=== PATIENT | female | born 1980 | race American Indian/Alaskan Native ===

== ENCOUNTER 2021-02-13 10:43 | Day surgery (SDC) | payer MEDICARE ==
[2021-02-13] MEDS ORDERED: SODIUM CHLORIDE 0.9% 1000 ML 1,000 ML ONE (11:04)
[2021-02-13 12:05] LABS: Calcium 9.3 mg/dL (8.4-10.2)
--- NOTE | 2021-02-13 12:11 | Anesthesia Day of Surgery ---
Anesthesia Day of Surgery - Day of Surgery Patient Examined: Yes Patient H&P Reviewed: Yes Patient is NPO: Yes Beta Blockers: Yes
[2021-02-13 12:13] LABS: Hematocrit 34.4 % (30.3-42.9); Hemoglobin 10.6 gm/dl (10.1-14.3)
[2021-02-13] MEDS ORDERED: ONDANSETRON 4 MG/2 ML INJ IV PRN (12:13)
[2021-02-13] MEDS ORDERED: HYDROmorphone 1 MG/1 ML INJ IV PRN ×2 (12:13)
[2021-02-13] MEDS ORDERED: fentaNYL 100 MCG/2 ML INJ IV ONE (12:13)
--- NOTE | 2021-02-13 12:13 | Anesthesia Consultation ---
Anesthesia Consult and Med Hx Date of service: 02/13/21 - Airway Anesthetic Teeth Evaluation: Good ROM Head & Neck: Adequate Mental/Hyoid Distance: Adequate Mallampati Class: Class II Intubation Access Assessment: Good - Pre-Operative Health Status ASA Pre-Surgery Classification: ASA3 Nerve Block: IS (GA if needed) - Pulmonary Hx Smoking: Yes - Cardiovascular System Hx Hypertension: Yes - Central Nervous System Hx Psychiatric Problems: Yes - Gastrointestinal Hx Gastroesophageal Reflux Disease: Yes - Endocrine Hx End Stage Renal Disease: Yes Hx Non-Insulin Dependent Diabetes: Yes - Hematic Hx Anemia: Yes (IRON TRANSFUSIONS) Hx Sickle Cell Disease: Yes (SICKLE CELL TRAIT) - Other Systems Hx Alcohol Use: No Hx Substance Use: No Hx Cancer: No Hx Obesity: Yes - Additional Comments Anesthesia Medical History Comments: ? reaction to blood tx
[2021-02-13] MEDS ORDERED: BUPIVACAINE/PF (0.5%) 5 MG/1 ML 30 ML VIAL INFILTRATI ONE (12:14)
[2021-02-13] MEDS ORDERED: SODIUM CHLORIDE 0.9% 1000 ML 1,000 ML IV SCH (12:15)
[2021-02-13] MEDS ORDERED: MIDAZOLAM 2 MG/2 ML INJ IV NR (13:00)
--- NOTE | 2021-02-13 13:09 | History and Physical Report ---
History of Present Illness Date of examination: 02/13/21 History of present illness: HPI: 40 year old male with ESRD on HD presents in need of upper extremity access. The patient was initially schedule to undergo revision of left arm av graft but was noted to be thrombosed in pre-op. Patient will now need to undergo venogram to determine access options. ROS: as per HPI PE: NAD, A&O x 3 RRR non-labored respirations Plan: Plan for bilateral upper extremity venogram Medications and Allergies Allergies Allergy/AdvReac Type Severity Reaction Status Date / Time No Known Allergies Allergy Verified 02/05/21 16:09 Home Medications Medication Instructions Recorded Confirmed Last Taken Type Escitalopram [Lexapro] 10 mg PO DAILY 02/05/21 02/13/21 02/12/21 09:00 History Losartan [Cozaar] 100 mg PO QDAY 02/05/21 02/13/21 02/13/21 06:00 History Metoprolol [Lopressor] 25 mg PO BID 02/05/21 02/13/21 02/13/21 06:00 History NIFEdipine XL [Procardia Xl] 60 mg PO QDAY 02/05/21 02/13/21 02/13/21 06:00 History Omeprazole Magnesium [PriLOSEC Otc] 20 mg PO BID 02/05/21 02/13/21 02/12/21 15:00 History Sevelamer Carbonate [Renvela] 800 mg PO TIDWM 02/05/21 02/13/21 02/12/21 17:00 History Active Meds: Active Medications Hydromorphone HCl (Hydromorphone 1 Mg/1 Ml Inj) 0.25 mg IV Q10MIN PRN PRN Reason: Pain, Moderate (4-6) Hydromorphone HCl (Hydromorphone 1 Mg/1 Ml Inj) 0.5 mg IV Q10MIN PRN PRN Reason: Pain , Severe (7-10) Sodium Chloride (Nacl 0.9% 1000 Ml) 1,000 mls @ 42 mls/hr IV DIRECT MOI Midazolam HCl (Midazolam 2 Mg/2 Ml Inj) 2 mg IV PREOP NR Stop: 02/13/21 23:59 Ondansetron HCl (Ondansetron 4 Mg/2 Ml Inj) 4 mg IV ONCE PRN PRN Reason: Nausea And Vomiting Results - Labs CBC & Chem 7: 02/13/21 11:30 02/13/21 11:30 Labs: Abnormal lab results 02/13/21 02/13/21 Range/Units 11:30 11:31 Chloride 92.5 L (98-107) mmol/L BUN 30 H (7-17) mg/dL Creatinine 6.7 H (0.6-1.2) mg/dL Glucose 114 H (65-100) mg/dL POC Glucose 108 H (70-105) mg/dL
[2021-02-13] MEDS ORDERED: HEPARIN/NS 5000 UNIT/500ML 1,000 ML IR ONE (13:19)
[2021-02-13] MEDS ORDERED: LIDOCAINE (2%) 20 MG/1 ML VIAL 20 ML MDV INFILTRATI ONE (13:20)
[2021-02-13 13:52] VITALS: BP 131/75
[2021-02-13] MEDS ORDERED: HEPARIN/NS 5000 UNITS/500 ML BAG (CATH LAB ONLY) IR ONE (14:15)
[2021-02-13] MEDS ORDERED: HEPARIN 10,000 UNITS/10 ML VIAL ONE (14:54)
--- NOTE | 2021-02-13 15:02 | Post Operative Note ---
Date of procedure: 02/13/21 Pre-op diagnosis: ESRD Post-op diagnosis: same Findings: Left upper extremity venogram demonstrated multiple collaterals in the distal forearm with reconstitution of the cephalic vein in the mid forearm that was small and dimunitive in size, the cephalic vein occludes in the distal upper arm with reconsitution of the paired brachial veins which were patent, axillary, subclavian anf left innominant vein patent. Right upper extremity venogram demonstrated multiple collaterals in the forearm with no named vessels in the forearm with reconsitution of the paired brachial veins which were patent, axillary, subclavian anf left innominant vein patent. Procedure: Bilateral upper extremity venogram Anesthesia: local Surgeon: DOTTIE ADDISON Estimated blood loss: none Pathology: none Condition: stable Disposition: PACU
--- NOTE | 2021-02-13 15:04 | Short Stay Summary ---
Short Stay Documentation Date of service: 02/13/21 - History H&P: obtained from office Past Medical History: ESRD, hypertension - Allergies and Medications Current Medications: Allergies No Known Allergies Allergy (Verified 02/05/21 16:09) Home Medications Medication Instructions Recorded Confirmed Last Taken Type Escitalopram [Lexapro] 10 mg PO DAILY 02/05/21 02/13/21 02/12/21 09:00 History Losartan [Cozaar] 100 mg PO QDAY 02/05/21 02/13/21 02/13/21 06:00 History Metoprolol [Lopressor] 25 mg PO BID 02/05/21 02/13/21 02/13/21 06:00 History NIFEdipine XL [Procardia Xl] 60 mg PO QDAY 02/05/21 02/13/21 02/13/21 06:00 History Omeprazole Magnesium [PriLOSEC Otc] 20 mg PO BID 02/05/21 02/13/21 02/12/21 15:00 History Sevelamer Carbonate [Renvela] 800 mg PO TIDWM 02/05/21 02/13/21 02/12/21 17:00 History Active Medications Hydromorphone HCl (Hydromorphone 1 Mg/1 Ml Inj) 0.25 mg IV Q10MIN PRN PRN Reason: Pain, Moderate (4-6) Hydromorphone HCl (Hydromorphone 1 Mg/1 Ml Inj) 0.5 mg IV Q10MIN PRN PRN Reason: Pain , Severe (7-10) Sodium Chloride (Nacl 0.9% 1000 Ml) 1,000 mls @ 42 mls/hr IV DIRECT MOI Last Admin: 02/13/21 12:30 Dose: 42 mls/hr Documented by: Midazolam HCl (Midazolam 2 Mg/2 Ml Inj) 2 mg IV PREOP NR Stop: 02/13/21 23:59 Ondansetron HCl (Ondansetron 4 Mg/2 Ml Inj) 4 mg IV ONCE PRN PRN Reason: Nausea And Vomiting - Physical exam General appearance: no acute distress Lungs: Normal air movement Heart: Regular rate Extremities: no ischemia - Hospital course Hospital course: the patient was taken to the geophysical laboratory supervisor and had a bilateral upper extremity venogram performed. please refer to the operative note concerning details of the procedure. the patient tolerated the procedure well and was discharged home in stable condition. - Disposition Condition at discharge: Stable Disposition: 01 HOME / SELF CARE / HOMELESS Short Stay Discharge Plan Follow up with: PRIMARY CARE, [Primary Care Provider] - 7 Days
--- NOTE | 2021-02-13 15:35 | Post Anesthesia Evaluation ---
- Post Anesthesia Evaluation Patient Participated: Yes Airway Patent: Yes Stable Respiratory Function: Yes Nausea/Vomiting: No Temp > 96.8F: Yes Pain Manageable: Yes Adequeate Hydration: Yes Anesthesia Complications: No Block Receding Appropriately: Yes Patient on Ventilator: No Other Comments: Surgery was cancelled. Arm in sling
--- NOTE | 2021-02-13 15:40 | Operative Report ---
DATE OF SURGERY: 02/13/2021 ATTENDING PHYSICIAN: Douglas Ceron MD STAFF SURGEON: Douglas Ceron MD PREOPERATIVE DIAGNOSIS: End-stage renal disease. POSTOPERATIVE DIAGNOSIS: End-stage renal disease. PROCEDURE PERFORMED: Bilateral upper extremity venogram. COMPLICATIONS: None. ESTIMATED BLOOD LOSS: Less than 10 mL. ANESTHESIA: Local. ANGIOGRAPHIC FINDINGS: Left upper extremity venogram demonstrated multiple collaterals in the distal forearm with reconstitution of the cephalic vein in the mid forearm that was small and diminutive in size. The cephalic vein occluded in the distal upper arm with reconstitution of the paired brachial veins, which were patent. The axillary, subclavian and left innominate vein were all patent. Right upper extremity venogram demonstrated multiple collaterals in the forearm with no named vessels in the forearm with reconstitution of the paired brachial veins, which were patent. The right axillary, subclavian and right innominate veins were all patent. INDICATIONS FOR PROCEDURE: This is a 40-year-old female with end-stage renal disease, on hemodialysis, who initially presented to our office with worsening swelling after cannulation of her left upper extremity access. 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 The patient was scheduled to undergo revision of this access today, however, on preoperative assessment, it was noted that the patient's access had thrombosed several days ago. Given the aneurysmal degeneration of the access, it was felt not to be safe to undergo a percutaneous thrombectomy and the patient would require a new access. Therefore, the patient then was scheduled to undergo a bilateral upper extremity venogram to determine what options the patient may have. DESCRIPTION OF PROCEDURE: After the appropriate consent was obtained, the patient was brought to the oil field laborer and placed on the table in supine position with both arms extended. The IVs had been placed prior to intervention. We then proceeded to inject contrast through each arm and x-rays taken, which demonstrated the findings noted above. The patient tolerated the procedure well. Both accesses were flushed with heparinized saline and the patient was then taken to recovery in stable condition. TID: [id number] RECEIPT: [id number] BRUCE/DEVIN
== END 2021-02-13 10:44 | disposition home or self-care (01) ==
LOC: OR 10:43
PROVIDERS: ATTEND Surgery Vascular Surgery
DX: I12.0 Hypertensive chronic kidney disease with stage 5 chronic kidney disease or end stage renal disease (principal); N18.6 End stage renal disease; K21.9 Gastro-esophageal reflux disease without esophagitis; E66.9 Obesity, unspecified; F32.9 Major depressive disorder, single episode, unspecified; Z99.2 Dependence on renal dialysis; Z87.891 Personal history of nicotine dependence; Z79.899 Other long term (current) drug therapy; Z98.890 Other specified postprocedural states
CPT/HCPCS: 36415; 64415; 75822; 80048; 82962; 85014; 85018; 86850; 86900; 86901; J1644; J2250; J3010; J3490; J7030; 64450; Q0162; Q9967

== ENCOUNTER 2021-03-13 12:13 | Day surgery (SDC) | payer MEDICARE ==
[2021-03-13] MEDS ORDERED: SODIUM CHLORIDE 0.9% 1000 ML 1,000 ML ONE (13:57)
--- NOTE | 2021-03-13 14:09 | Anesthesia Day of Surgery ---
Anesthesia Day of Surgery - Day of Surgery Patient Examined: Yes Patient H&P Reviewed: Yes Patient is NPO: Yes
[2021-03-13] MEDS ORDERED: ONDANSETRON 4 MG/2 ML INJ IV PRN (14:12)
[2021-03-13] MEDS ORDERED: HYDROmorphone 1 MG/1 ML INJ IV PRN ×2 (14:12)
[2021-03-13] MEDS ORDERED: fentaNYL 100 MCG/2 ML INJ IV ONE (14:12)
--- NOTE | 2021-03-13 14:12 | Anesthesia Consultation ---
Anesthesia Consult and Med Hx Date of service: 03/13/21 - Airway Anesthetic Teeth Evaluation: Poor (Missing) ROM Head & Neck: Adequate Mental/Hyoid Distance: Adequate Mallampati Class: Class II Intubation Access Assessment: Good - Pre-Operative Health Status ASA Pre-Surgery Classification: ASA3 Nerve Block: IS (Block; GA if needed) - Pulmonary Hx Smoking: Yes (Former [id number]) Hx Sleep Apnea: No - Cardiovascular System Hx Hypertension: Yes - Central Nervous System Hx Psychiatric Problems: Yes (Depression) - Gastrointestinal Hx Gastroesophageal Reflux Disease: Yes - Endocrine Hx Renal Disease: Yes (Goodpasture syndrome) Hx End Stage Renal Disease: Yes (Last HD yesterday) Hx Non-Insulin Dependent Diabetes: Yes ("PRE") - Hematic Hx Anemia: Yes (IRON INFUSION) Hx Sickle Cell Disease: Yes (SICKLE CELL TRAIT) - Other Systems Hx Alcohol Use: No Hx Substance Use: No Hx Cancer: No Hx Obesity: Yes - Additional Comments Anesthesia Medical History Comments: Was here [id number] postponed
[2021-03-13 14:15] LABS: Hematocrit 29.8 % (30.3-42.9); Hemoglobin 9.3 gm/dl (10.1-14.3); Mean Corpuscular HGB Conc 31 % (30-34); Mean Corpuscular Volume 84 fl (79-97); Platelet Count 233 K/mm3 (140-440); Red Blood Count 3.53 M/mm3 (3.65-5.03); Red Cell Distribution Width 17.9 % (13.2-15.2)
[2021-03-13] MEDS ORDERED: SODIUM CHLORIDE 0.9% 1000 ML 1,000 ML IV SCH (14:15)
[2021-03-13] MEDS ORDERED: MIDAZOLAM 5 MG/5 ML INJ MDV IV ONE (14:35)
[2021-03-13] MEDS ORDERED: BUPIVACAINE/PF (0.5%) 5 MG/1 ML 30 ML VIAL INFILTRATI ONE (14:37)
[2021-03-13 14:55] LABS: Calcium 9.4 mg/dL (8.4-10.2)
[2021-03-13] MEDS ORDERED: ceFAZolin/STERILE WATER 2 GM/20 ML SYRINGE IV NR (15:00)
[2021-03-13] MEDS ORDERED: MIDAZOLAM 2 MG/2 ML INJ IV NR (15:00)
[2021-03-13] MEDS: MIDAZOLAM 5 MG/5 ML INJ MDV IV SCH ×2 (15:06→15:08)
[2021-03-13] MEDS ORDERED: propofoL 200 MG/20 ML VIAL IV ONE ×2 (15:14→16:16)
[2021-03-13] MEDS ORDERED: LIDOCAINE MPF (2%) 20 MG/1 ML VIAL 5 ML ONE (15:14)
[2021-03-13] MEDS ORDERED: HYDROmorphone 1 MG/1 ML INJ ONE (15:14)
[2021-03-13] MEDS ORDERED: SODIUM BICARB 8.4% 50 MEQ/50 ML VIAL IV ONE (16:02)
[2021-03-13] MEDS ORDERED: LIDOCAINE 1%/EPINEPHRINE 1:100,000 VIAL (20 ML) INFILTRATI ONE (16:02)
[2021-03-13] MEDS ORDERED: HEPARIN 10,000 UNITS/10 ML VIAL ONE (16:02)
[2021-03-13] MEDS ORDERED: SODIUM CHLORIDE 0.9% 500 ML 500 ML ONE (16:02)
[2021-03-13] MEDS ORDERED: BUPIVACAINE/PF (0.25%) 2.5 MG/ML 30 ML VIAL INFILTRATI ONE (16:02)
[2021-03-13] MEDS ORDERED: NITROGLYCERIN SYRINGE 0 ML ONE (16:03)
[2021-03-13] MEDS ORDERED: KETAMINE/STERILE WATER 50 MG/ML SYRINGE ONE (16:21)
[2021-03-13] MEDS ORDERED: HEPARIN 10,000 UNITS/10 ML VIAL IV ONE (16:57)
[2021-03-13] MEDS ORDERED: SODIUM CHLORIDE 0.9% 500 ML IVPB IRRIGATION ONE (16:59)
[2021-03-13] MEDS ORDERED: SODIUM CHLORIDE 0.9% IRR 1,500 ML BOTTLE IR ONE (16:59)
[2021-03-13] MEDS ORDERED: THROMBIN (RECOMBINANT) 5,000 UNIT VIAL TP ONE ×2 (17:31→17:36)
--- NOTE | 2021-03-13 18:30 | Post Operative Note ---
Date of procedure: 03/13/21 Pre-op diagnosis: ESRD Post-op diagnosis: same Procedure: Left Arm Axillary Loop AV Graft Insertion Anesthesia: GETA Surgeon: DOTTIE ADDISON Estimated blood loss: other (25 ml) Pathology: none Condition: stable Disposition: PACU
[2021-03-13] MEDS ORDERED: oxyCODONE /ACETAMINOPHEN 5-325MG TAB PO PRN (18:32)
--- NOTE | 2021-03-13 18:32 | Short Stay Summary ---
Short Stay Documentation Date of service: 03/13/21 - History H&P: dictated Past Medical History: ESRD, hypertension - Allergies and Medications Current Medications: Allergies No Known Allergies Allergy (Verified 02/05/21 16:09) Home Medications Medication Instructions Recorded Confirmed Last Taken Type Escitalopram [Lexapro] 10 mg PO DAILY 02/05/21 03/04/21 03/12/21 10:00 History Losartan [Cozaar] 100 mg PO QDAY 02/05/21 03/04/21 03/12/21 10:00 History Metoprolol [Lopressor] 25 mg PO BID 02/05/21 03/04/21 03/12/21 10:00 History NIFEdipine XL [Procardia Xl] 60 mg PO QDAY 02/05/21 03/04/21 03/12/21 10:00 History Omeprazole Magnesium [PriLOSEC Otc] 20 mg PO BID 02/05/21 03/04/21 03/12/21 10:00 History Sevelamer Carbonate [Renvela] 800 mg PO TIDWM 02/05/21 03/04/21 03/12/21 10:00 History amLODIPine 10 mg PO PRN PRN MDD HYPERTENSION 03/13/21 03/13/21 03/13/21 08:00 History Active Medications Cefazolin Sodium (Cefazolin/Sterile Water 2 Gm/20 Ml Syringe) 2 gm IV PREOP NR Stop: 03/13/21 23:59 Hydromorphone HCl (Hydromorphone 1 Mg/1 Ml Inj) 0.25 mg IV Q10MIN PRN PRN Reason: Pain, Moderate (4-6) Hydromorphone HCl (Hydromorphone 1 Mg/1 Ml Inj) 0.5 mg IV Q10MIN PRN PRN Reason: Pain , Severe (7-10) Sodium Chloride (Nacl 0.9% 1000 Ml) 1,000 mls @ 42 mls/hr IV DIRECT MOI Last Admin: 03/13/21 13:57 Dose: 42 mls/hr Documented by: Ondansetron HCl (Ondansetron 4 Mg/2 Ml Inj) 4 mg IV ONCE PRN PRN Reason: Nausea And Vomiting - Physical exam General appearance: no acute distress Lungs: Normal air movement Heart: Regular rate Extremities: no ischemia - Hospital course Hospital course: the patient was taken to the operating room and had a left arm av graft insertion performed. please refer to the operative note concerning details of the procedure. the patient tolerated the procedure well and was discharged home in stable condition. - Disposition Condition at discharge: Stable Disposition: 01 HOME / SELF CARE / HOMELESS Short Stay Discharge Plan Follow up with: PRIMARY CAREMD [Primary Care Provider] - 7 Days
[2021-03-13] MEDS ORDERED: HEPARIN 10,000 UNIT/1 ML VIAL IV PRN (18:40)
--- NOTE | 2021-03-13 19:11 | Operative Report ---
DATE OF SURGERY: 03/13/2021 STAFF SURGEON: Douglas Ceron MD PREOPERATIVE DIAGNOSIS: End-stage renal disease. POSTOPERATIVE DIAGNOSIS: End-stage renal disease. PROCEDURE PERFORMED: Left arm axillary loop AV graft insertion. COMPLICATIONS: None. ESTIMATED BLOOD LOSS: 25 mL. ANESTHESIA: General. INDICATIONS FOR PROCEDURE: This is a 41-year-old female with end-stage renal disease, on hemodialysis via left IJ PermCath, who has had multiple upper extremity access creations in both arms at outside facilities, they have all subsequently failed. The patient's axillary vein was found to be patent in the left arm and it was felt that the patient could have one more access attempted in the left upper extremity and the patient was explained all the risks, benefits and alternatives of procedure, who expressed understanding and wished to proceed. DESCRIPTION OF PROCEDURE: After the appropriate consent was obtained, the patient was brought back to the operating room and placed on the operating table in supine position with the left arm extended. The patient was given appropriate medication for general anesthesia, had LMA placed without difficulty. The left arm was prepped and draped in the usual sterile fashion with ChloraPrep. Appropriate preoperative antibiotics were administered, and appropriate timeout was performed indicating correct patient, procedure, and site of the procedure. We then began the operation by making a transverse incision in the axilla. This was carried through the subcutaneous tissue with combination of blunt dissection and electrocautery. The fascia overlying the axillary neurovascular bundle was identified and transected and the axillary vein was found to be suitable for venous outflow. This was mobilized for appropriate distance both proximally and distally. We then continued dissection medially to expose the axillary artery, which was found to be suitable for arterial inflow and was mobilized for appropriate distance both proximally and distally. We then made a counter incision in the mid upper arm. This was carried through subcutaneous tissue with combination of blunt dissection and electrocautery. We then proceeded to create a subcutaneous tunnel, bringing through a 4-7 mm Propaten graft placed in a looped fashion. The patient was given 5000 units of unfractionated heparin. After appropriate timeout elapsed, the graft was appropriately spatulated. Vascular clamps were placed on the axillary artery, both proximally and distally. Longitudinal arteriotomy was made with 11 blade, extended with Pinon scissors and an end-to-side anastomosis was performed with a running 6-0 Prolene suture with the arterial anastomosis on the thumb side. We then proceeded to establish flow through the graft with a nice pulsatile flow. We then cut the graft to an appropriate length, spatulated. Vascular clamps were placed on the axillary vein, both proximally and distally. Longitudinal venotomy was made with an 11 blade, extended with Pinon scissors and an end-to-side anastomosis was performed with a running 5-0 Prolene suture. Once complete, flow was established through the graft, had a nice palpable thrill. We then looked to obtain hemostasis along our suture line, which was obtained with hemostatic agents. Once we were satisfied with hemostasis, we then proceeded to close both wounds with deep subcutaneous layer with interrupted 3-0 PDS and both incisions were closed with cee. Appropriate dressings were placed. The patient tolerated the procedure well, emerged from the general anesthesia, had LMA removed and was sent to recovery in stable condition. All sponge, instrument and needle counts were correct at completion of the operation. TID: [id number] RECEIPT: [id number] BRUCE/DEVIN
--- NOTE | 2021-03-13 19:23 | Post Anesthesia Evaluation ---
- Post Anesthesia Evaluation Patient Participated: Yes Airway Patent: Yes Stable Respiratory Function: Yes Nausea/Vomiting: No Temp > 96.8F: Yes Pain Manageable: Yes Adequeate Hydration: Yes Anesthesia Complications: No Block Receding Appropriately: Not Applicable Patient on Ventilator: No
[2021-03-13 19:33] VITALS: BP 141/72
== END 2021-03-13 19:40 | disposition home or self-care (01) ==
LOC: OR 12:13
PROVIDERS: ATTEND Surgery Vascular Surgery
DX: I12.0 Hypertensive chronic kidney disease with stage 5 chronic kidney disease or end stage renal disease (principal); E11.22 Type 2 diabetes mellitus with diabetic chronic kidney disease; N18.6 End stage renal disease; K21.9 Gastro-esophageal reflux disease without esophagitis; F32.9 Major depressive disorder, single episode, unspecified; E66.9 Obesity, unspecified; Z87.891 Personal history of nicotine dependence; Z99.2 Dependence on renal dialysis; Z79.899 Other long term (current) drug therapy; Z98.890 Other specified postprocedural states
CPT/HCPCS: 36415; 36832; 80048; 85027; C1768; J0690; J1170; J1644; J2250; J2704; J3010; J3490; J7030; J7040; J1815; J7120; Q0162

== ENCOUNTER 2021-04-21 17:48 | Emergency (ER) | payer MEDICARE ==
[2021-04-21] MEDS ORDERED: ONDANSETRON 4 MG ODT TAB PO ONE (19:05)
--- NOTE | 2021-04-21 19:07 | Emergency Department Report ---
ED Abdominal Pain HPI - General Chief Complaint: Abdominal Pain Stated Complaint: ABD PAIN Time Seen by Provider: 04/21/21 18:43 Source: patient Mode of arrival: Ambulatory Limitations: No Limitations - History of Present Illness Initial Comments: Patient presented with abdominal pain. She actually had to have surgery on her left axillary area several weeks ago. Over the last week or so she has developed increasing abdominal pain. She describes abdominal distention as well. The pain is kind of cramping. It is in the epigastric and side area gamal aterally. She noticed that her abdomen is gotten bigger in addition. She has not noticed any kind of swelling in the feet or ankles. She states she does have some occasional nausea. Initially she had diarrhea after surgery but now her bowel movements have been normal. There is no hematemesis or coffee-ground emesis. She states she is never had symptoms of this nature before. - Related Data Home Medications Medication Instructions Recorded Confirmed Last Taken Escitalopram [Lexapro] 10 mg PO DAILY 02/05/21 03/04/21 03/12/21 10:00 Losartan [Cozaar] 100 mg PO QDAY 02/05/21 03/04/21 03/12/21 10:00 Metoprolol [Lopressor TAB] 25 mg PO BID 02/05/21 03/04/21 03/12/21 10:00 NIFEdipine XL [Procardia Xl] 60 mg PO QDAY 02/05/21 03/04/21 03/12/21 10:00 Omeprazole Magnesium [PriLOSEC Otc] 20 mg PO BID 02/05/21 03/04/21 03/12/21 10:00 Sevelamer Carbonate [Renvela] 800 mg PO TIDWM 02/05/21 03/04/21 03/12/21 10:00 amLODIPine 10 mg PO PRN PRN MDD HYPERTENSION 03/13/21 03/13/21 03/13/21 08:00 Previous Rx's Medication Instructions Recorded Last Taken Type oxyCODONE /ACETAMINOPHEN [Percocet 1 tab PO Q6HR PRN #30 tablet 03/13/21 Unknown Rx 5/325 mg] Hyoscyamine Subl [Levsin Sl 0.125 0.125 mg SL Q6HR PRN #15 tab 04/21/21 Unknown Rx TAB] Metoclopramide [Reglan] 10 mg PO ACHS #30 tablet 04/21/21 Unknown Rx Allergies Allergy/AdvReac Type Severity Reaction Status Date / Time No Known Allergies Allergy Verified 02/05/21 16:09 ED Review of Systems ROS: Stated complaint: ABD PAIN Other details as noted in HPI Comment: All other systems reviewed and negative Constitutional: denies: fever Eyes: denies: eye pain ENT: denies: throat pain Respiratory: denies: cough Cardiovascular: denies: chest pain Endocrine: denies: unexplained weight loss Gastrointestinal: as per HPI Genitourinary: other (Patient is on dialysis and does not make urine) Musculoskeletal: denies: back pain Skin: denies: rash Neurological: denies: headache Hematological/Lymphatic: denies: easy bruising ED Past Medical Hx - Past Medical History Hx Hypertension: Yes Hx Renal Disease: Yes (Goodpasture syndrome) Hx Sickle Cell Disease: Yes (SICKLE CELL TRAIT) Hx HIV: No - Surgical History Additional Surgical History: Recent left arm - Family History Family history: hypertension - Social History Smoking Status: Former Smoker - Medications Home Medications: Home Medications Medication Instructions Recorded Confirmed Last Taken Type Escitalopram [Lexapro] 10 mg PO DAILY 02/05/21 03/04/21 03/12/21 10:00 History Losartan [Cozaar] 100 mg PO QDAY 02/05/21 03/04/21 03/12/21 10:00 History Metoprolol [Lopressor TAB] 25 mg PO BID 02/05/21 03/04/21 03/12/21 10:00 History NIFEdipine XL [Procardia Xl] 60 mg PO QDAY 02/05/21 03/04/21 03/12/21 10:00 History Omeprazole Magnesium [PriLOSEC Otc] 20 mg PO BID 02/05/21 03/04/21 03/12/21 10:00 History Sevelamer Carbonate [Renvela] 800 mg PO TIDWM 02/05/21 03/04/21 03/12/21 10:00 History amLODIPine 10 mg PO PRN PRN MDD HYPERTENSION 03/13/21 03/13/21 03/13/21 08:00 History oxyCODONE /ACETAMINOPHEN [Percocet 1 tab PO Q6HR PRN #30 tablet 03/13/21 Unknown Rx 5/325 mg] Hyoscyamine Subl [Levsin Sl 0.125 0.125 mg SL Q6HR PRN #15 tab 04/21/21 Unknown Rx TAB] Metoclopramide [Reglan] 10 mg PO ACHS #30 tablet 04/21/21 Unknown Rx ED Physical Exam - General Limitations: No Limitations, Other (Pulse ox noted and normal) General appearance: alert, in no apparent distress - Head Head exam: Present: atraumatic, normocephalic - Eye Eye exam: Present: normal appearance, EOMI - ENT ENT exam: Present: normal orophraynx, normal external ear exam - Neck Neck exam: Present: normal inspection. Absent: meningismus - Respiratory Respiratory exam: Present: normal lung sounds bilaterally. Absent: respiratory distress - Cardiovascular Cardiovascular Exam: Present: regular rate, normal rhythm - GI/Abdominal GI/Abdominal exam: Present: soft, distended (Tympanitic), tenderness (Diffuse). Absent: guarding, rebound - Extremities Exam Extremities exam: Present: normal capillary refill - Back Exam Back exam: Absent: CVA tenderness (R), CVA tenderness (L) - Neurological Exam Neurological exam: Present: alert, oriented X3, CN II-XII intact, normal gait. Absent: motor sensory deficit - Psychiatric Psychiatric exam: Present: normal affect, normal mood - Skin Skin exam: Present: warm, dry ED Course Vital Signs 04/21/21 18:41 Temperature 98.7 F Pulse Rate 94 H Respiratory 16 Rate Blood Pressure 149/90 [Right] O2 Sat by Pulse 97 Oximetry - Reevaluation(s) Reevaluation #1: 04/21/21 19:07 Labs and XR pending. Reevaluation #2: 04/21/21 19:47 Labs and x-ray are pending. Reevaluation #3: 04/21/21 20:06 Labs and x-rays have been noted. Patient has chronic renal disease. She was subsequently discharged. ED Medical Decision Making - Lab Data Result diagrams: 04/21/21 18:52 04/21/21 18:52 - Radiology Data Radiology results: report reviewed - Medical Decision Making Patient presents with abdominal pain and reports of distention. She did not have tympany suggestive of bowel obstruction. She states she had actually been going to the restroom. There was no fluid wave that would suggest ascites and the patient does not have liver injury suggestive of acute liver disease. Patient does have chronic kidney disease on dialysis. Renal function is noted. Patient is to be dialyzed on Thursday. There is no indication for emergent dialysis at this time. There is no evidence of volume overload. Patient was treated symptomatically and referred for outpatient evaluation and follow-up. Critical Care Time: No Critical care attestation.: If time is entered above; I have spent that time in minutes in the direct care of this critically ill patient, excluding procedure time. ED Disposition Clinical Impression: Abdominal bloating, Generalized abdominal pain Disposition: HOME / SELF CARE / HOMELESS Is pt being admited?: No Condition: Stable Instructions: Abdominal Pain (ED), Abdominal Pain, Adult Additional Instructions: Drink fluids. Have a high-fiber diet. Return for problems. Follow-up with your regular doctor and your kidney doctor for recheck. Prescriptions: Hyoscyamine Subl [Levsin Sl 0.125 TAB] 0.125 mg SL Q6HR PRN #15 tab PRN Reason: cramps Metoclopramide [Reglan] 10 mg PO ACHS #30 tablet Referrals: PRIMARY MD JAZMIN [Referring] - 3-5 Days KEN RODRIGUEZ MD [Staff Physician] - 3-5 Days
[2021-04-21 19:31] LABS: Basophils # (Auto) 0.1 K/mm3 (0.0-0.1); Basophils % (Auto) 1.2 % (0.0-1.8); Eosinophils # (Auto) 0.3 K/mm3 (0.0-0.4); Eosinophils % (Auto) 3.7 % (0.0-4.3); Hematocrit 35.7 % (30.3-42.9); Lymphocytes # (Auto) 1.8 K/mm3 (1.2-5.4); Lymphocytes % (Auto) 25.9 % (13.4-35.0); Mean Corpuscular HGB Conc 31 % (30-34); Mean Corpuscular Volume 84 fl (79-97); Monocytes # (Auto) 0.5 K/mm3 (0.0-0.8); Monocytes % (Auto) 6.7 % (0.0-7.3); Platelet Count 322 K/mm3 (140-440); Red Blood Count 4.23 M/mm3 (3.65-5.03); Red Cell Distribution Width 18.4 % (13.2-15.2)
--- NOTE | 2021-04-21 19:48 | XRay Report ---
XR abd series w cxr 1V INDICATION / CLINICAL INFORMATION: distention. COMPARISON: None available. FINDINGS: SUPPORT DEVICES: Left-sided Port-A-Cath is demonstrated with tip in the mid SVC. HEART / MEDIASTINUM: Cardiomegaly. LUNGS / PLEURA: Lungs are clear. Costophrenic sulci are sharp. No pneumothorax. ABDOMEN: Nonobstructive bowel gas pattern. No pneumoperitoneum. ADDITIONAL FINDINGS: Calcified lesion within the pelvis, likely uterine fibroid. IVC filter noted. IMPRESSION: 1. No acute findings. 2. Nonobstructive bowel gas pattern. Signer Name: Maykel Green MD Signed: 04/21/2021 7:43 PM Workstation Name: [id number]
[2021-04-21 19:54] LABS: Albumin 4.1 g/dL (3.9-5)
[2021-04-21 21:48] VITALS: BP 133/65
== END 2021-04-21 21:48 | disposition home or self-care (01) ==
LOC: ED 17:48
DX: R10.84 Generalized abdominal pain (principal); R14.0 Abdominal distension (gaseous); I10 Essential (primary) hypertension; D57.1 Sickle-cell disease without crisis; Z98.890 Other specified postprocedural states; Z87.891 Personal history of nicotine dependence
CPT/HCPCS: 36415; 74022; 80053; 85025; 99283; J3490; Q0162